=== PATIENT | male | born 1960 | race Caucasian/White ===

== ENCOUNTER 2023-04-14 20:19 | Outpatient (CLI) | payer MEDICARE, SELFPAY ==
--- NOTE | 2023-04-18 11:36 | W.PM.SLEEP ---
Sleep Study Details Details Interpreting Provider: Larry Date of Sleep Study: 04/14/23 Sleep Study Details: STUDY TYPE:? Hospital-based CPAP titration study ? BMI:? 35.7 ORDERING PROVIDER:? Mike INDICATION:? Previous positive sleep study ? SLEEP SUMMARY:? Total sleep time 281 minutes, efficiency 74%, arousal index 23.3 RESPIRATORY SUMMARY:? Mean oxygen awake 89, 72.9 minutes oxygen between 80 and 88%, minimum oxygen 84. The post treatment AHI for this study is 3. The supine AHI for this study was 48 This was a titration study done mainly in nonsupine position. The patient was titrated to a pressure of 12 and decreased RDI to 10.3 an AHI to 4.9 and included REM stage sleep in the nonsupine position. This is a nearly complete titration study PERIODIC LIMB MOVEMENTS OF SLEEP:? None were noted CARDIAC:? Awake 65, asleep 57. No arrhythmias noted IMPRESSION:? This was a relatively successful titration study. CPAP at a pressure of 12 decreased AHI to 4.9 and included nonsupine REM sleep. The patient's overall oxygen saturation baseline is quite low. RECOMMENDATION: Initiate AutoSet CPAP at a pressure of 10-17 and the patient's his sleep in the nonsupine position.. Once effective therapy is established would recommend an overnight oximetry study. The patient may qualify for nocturnal oxygen. If previously unknown the patient's baseline oxygen saturation is quite low and further cardiopulmonary evaluation may be indicated.
== END 2023-04-14 20:20 | disposition home or self-care (01) ==
LOC: SLEEP 20:23
PROVIDERS: PCP Registered Nurse; Visit Provider Registered Nurse
DX: G47.33 Obstructive sleep apnea (adult) (pediatric) (principal)
CPT/HCPCS: 95811